=== PATIENT | female | born 2000 | race Native Hawaiian/Other Pacific Islander ===

== ENCOUNTER → 2024-04-21 16:38 | Outpatient (CLI) | payer OTHER, SELFPAY ==
[2024-04-21 18:09] LABS: Thyroid Stimulating Hormone 1.07 uIU/mL (0.47-4.68)
[2024-04-21 19:47] LABS: Hepatitis B Surface Antigen NEGATIVE s/c (NEGATIVE); Rubella Antibody IgG 51.8 IU/mL (>15)
[2024-04-23 11:13] LABS: RPR Screen Non Reactive (Non Reactive); Varicella IgG Antibody Reactive (Non Reactive)
[2024-04-24 23:08] LABS: HCV AB Non Reactive (Non Reactive)
== END ==
LOC: LAB 16:42
PROVIDERS: Referring Provider Nurse Practitioner Adult Health; Visit Provider Nurse Practitioner Adult Health
DX: Z11.9 Encounter for screening for infectious and parasitic diseases, unspecified (principal); Z31.69 Encounter for other general counseling and advice on procreation
CPT/HCPCS: 36415; 84443; 86592; 86644; 86645; 86762; 86787; 86803; 86900; 86901; 87340